=== PATIENT | female | born 1960 | race Caucasian/White ===

== ENCOUNTER 2021-12-30 07:18 | Outpatient (CLI) | payer BC, SELFPAY ==
--- NOTE | ~2021-12-30 | MM_ITS ---
EXAMINATION: MM screening ministerio BI w bess HISTORY: Screening TECHNIQUE: Craniocaudal and mediolateral oblique 3-D tomosynthesis images were obtained and synthetic 2-D images were generated. CAD analysis was submitted and interpreted. COMPARISON: Comparison to multiple prior studies sequentially, with oldest reviewed study dated 12/2015. BREAST PARENCHYMAL COMPOSITION: The breasts are heterogenously dense, which may obscure small masses FINDINGS: There is no evidence of suspicious mass, calcification, or architectural distortion to sugg est malignancy in either breast. There has been no suspicious interval change. IMPRESSION: 1. No mammographic evidence of malignancy. 2. Recommend routine screening mammography in one year. BI-RADS Category 1: Negative Reviewed, dictated and finalized at location A. ATG DEVELOPER
== END 2021-12-30 07:19 | disposition home or self-care (01) ==
LOC: ANHIMG 07:21
PROVIDERS: PCP Family Medicine; Visit Provider Obstetrics & Gynecology
DX: Z12.31 Encounter for screening mammogram for malignant neoplasm of breast (principal)
CPT/HCPCS: 77063; 77067

== ENCOUNTER 2024-11-07 10:13 | Emergency (ER) | payer BC, SELFPAY ==
--- NOTE | ~2024-11-07 | XR_ITS ---
EXAMINATION: XR wrist RT min 3V, XR hand RT min 3V DATE: 11/07/2024 11:35 INDICATION: Right hand and wrist pain post fall TECHNIQUE: 1. Posteroanterior, oblique, and lateral views of the right wrist were obtained. 2. Dorsal palmar, oblique and lateral views of the right hand were obtained. COMPARISON: None. FINDINGS: Dorsally impacted transverse metaphyseal fracture of the distal right radius with 40 degree dorsal an gulation. There is 4 mm radial displacement of an ulnar styloid avulsion fracture. Normal alignment n o fractures within the right hand. 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 IMPRESSION: 1. 40 degrees dorsal angulation of a transverse extra articular fracture of the distal right radial m etaphyseal region. 2. 4 mm radial displacement of an ulnar styloid avulsion fracture. Reviewed, dictated and finalized at location B. EL POWERPLANT SUPERVISOR IMPRESSION: 1. 40 degrees dorsal angulation of a transverse extra articular fracture of the distal right radial metaphyseal region. 2. 4 mm radial displacement of an ulnar styloid avulsion fracture.
--- NOTE | ~2024-11-07 | XR_ITS ---
XR elbow RT min 3V Ordering provider: Sharif Arnold PA-C History: . PAIN AFTER FALL, LIMITED ROM . Comparison: None. FINDINGS: BONES: No acute fracture or dislocation. JOINT SPACES: Normal. SOFT TISSUES: Possible effusion seen anteriorly. No definite joint effusion. IMPRESSION: No acute osseous abnormality of the right elbow. Reviewed, dictated and finalized at location A. N END MAN
[2024-11-07 10:15] VITALS: BP 108/65; PULSE 63; RESP 16; TEMP 36.4; O2SAT 100
--- NOTE | 2024-11-07 11:31 | ED.FALL ---
HPI - Fall General Chief Complaint: Fall Stated Complaint: fell on ice hurt R wrist pain up arm to elbow Time Seen by Provider: 11/07/24 11:02 Source: patient Mode of arrival: ambulatory Limitations: no limitations History of Present Illness HPI Narrative: This is a 64 year old female who presents to the ED for chief complaint of right wrist, right elbow pain after a fall that occurred today. Patient reports that she slipped and fell on the ice and fell directly onto her right side. Denies any further injury including head injury or LOC. denies numbness or weakness. Related Data Home Medications ?Medication ?Instructions ?Recorded ?Confirmed ?Last Taken ?Type travoprost 0.004 % eye drops 1 drp EACH EYE QPM 11/21/21 11/21/21 Unknown History (Travatan Z) Allergies Allergy/AdvReac Type Severity Reaction Status Date / Time No Known Allergies Allergy Verified 11/07/24 10:14 Review of Systems Review of Systems: All systems as dictated in [facility] Past Medical History Medical History (Updated 11/07/24 @ 11:47 by Sharif Arnold PA-C) Migraine Allergies Family History Family History (Updated 11/21/21 @ 08:34 by Ania Tristan MA) Mother Lung cancer Sibling Melanoma Grandparent Lymphoma Hypertension Social History Social History (Updated 11/21/21 @ 08:35 by Ania Tristan MA) Smoking status: Never smoker Alcohol intake: current Substance use: never Exam Narrative: GENERAL: Well-appearing, well-nourished, and in no acute distress. MSK: RUE: Tenderness throughout the right wrist with no deformity. No bruising or crepitus. Anatomical snuffbox tenderness present. Neurovascular intact distally. LUE: benign SKIN: Warm, dry, no rash. NEURO: Alert and oriented x4. No focal deficits. PSYCH: Normal mood and affect. Course Vital Signs Vital signs: Vital Signs Temperature 97.6 F 11/07/24 10:15 Pulse Rate 63 11/07/24 10:15 Respiratory Rate 16 11/07/24 10:15 Blood Pressure 108/65 11/07/24 10:15 Pulse Oximetry 100 11/07/24 10:15 Oxygen Delivery Room Air 11/07/24 10:15 Temperature 97.4 F L 11/07/24 13:17 Pulse Rate 74 11/07/24 13:17 Respiratory Rate 17 11/07/24 13:17 Blood Pressure 96/60 L 11/07/24 13:17 Pulse Oximetry 97 11/07/24 13:17 Oxygen Delivery Room Air 11/07/24 10:15 MDM - Fall MDM Narrative Medical decision making narrative: This is a 64-year-old female who presents to the ED for chief complaint of right wrist and elbow pain after a fall on ice today. Vitals are normal. Exam remarkable for the above. No gross deformities or neurovascular compromise. Imaging today remarkable for distal radius and ulna fracture. Right wrist x-rays: IMPRESSION: 1. 40 degrees dorsal angulation of a transverse extra articular fracture of the distal right radial metaphyseal region. 2. 4 mm radial displacement of an ulnar styloid avulsion fracture. . Patient was given [place] for pain control here. She was placed in sugar-tong splint and given sling. Ortho referral given as well. Rx for short course for [place] for pain control at home Patient will be discharged in stable condition. Supportive measures discussed and return precautions given. Patient is understanding and agreeable with plan for discharge with PCP/ortho follow-up. Discharge Plan Discharge Clinical Impression: Closed fracture of right distal radius and ulna Patient Disposition: Home, Self-Care Condition: Stable Instructions: Antibiotic Form, Wrist Fracture in Adults (ED) Additional Instructions: Exam today does show fracture of the wrist. Please see Orthopedics for follow-up on this issue. Take [place] as prescribed for breakthrough pain. Control pain with Tylenol and ibuprofen regularly. Use the splint until otherwise directed by Orthopedics. If you have any new or worsening symptoms please return to the ER for further evaluation. Patient Language: [place] Citizen Prescriptions: New hydrocodone-acetaminophen 5-325 mg tablet 1 tablet PO Q8H PRN (Reason: pain) Qty: 12 0RF No Action travoprost [Travatan Z] 0.004 % drops 1 drp EACH EYE QPM Follow-up/Referrals: Orlin Gaytan MD [Physician] - Juaquin,Lyndon Zaldivar MD [Primary Care Provider] - Time of Disposition: 11:48
[2024-11-07] MEDS: HYDROcodone/acetaminophen (*CRX) 5-325 MG TABLET 1 TAB PO (12:11)
[2024-11-07 13:17] VITALS: BP 96/60; PULSE 74; RESP 17; TEMP 36.3; O2SAT 97
== END 2024-11-07 13:31 | disposition home or self-care (01) ==
PROVIDERS: Emergency Provider Physician Assistant; PCP Family Medicine
DX: S52.551A Other extraarticular fracture of lower end of right radius, initial encounter for closed fracture (principal); S52.611A Displaced fracture of right ulna styloid process, initial encounter for closed fracture; W00.0XXA Fall on same level due to ice and snow, initial encounter
CPT/HCPCS: 29125; 73080; 73110; 73130; 99284; A4565; A9270

== ENCOUNTER 2025-07-15 14:51 | Outpatient (CLI) | payer BC, SELFPAY ==
--- OUTSIDE RECORDS SUMMARY | 2025-07-13 11:39 | XMS_ITS | Encounter Summary ---
Author Organization [facility] Address [facility] [place] [address] Care Team Providers Care Server Programmer Name Role Phone Lyndon Reza MD Primary Care Provider [phone] Encounter Details Date Type Department Care Team (Latest Contact Info) Description 07/13/2025 11:39 AM CDT - 07/13/2025 11:59 PM T Hospital Encounter [facility] [address] [place] [address] Stefania Campbell NP [address] [phone] Discharge Disposition: Home or Self Care (Routine Discharge) Social History Tobacco Use Types Packs/Day Years Used Date Smoking Tobacco: Never Passive Smoke Exposure: Never Smokeless Tobacco: Never Alcohol Use Standard Drinks/Week Comments Yes 0 (1 standard drink = 0.6 oz pur e alcohol) rare [id number] Health Literacy Answer Date Recor ded How often do you need to hav e someone help you when you read instructions, pamphlets, or other written material from your doctor or pharmacy? Never 04/11/2025 [facility] Utilities Answer Date Recorded In the past 12 months has e electric, gas, oil, or water [facility] threatened to shut off services in your home? No 04/11/2025 Humiliation, Afraid, Rape, and Kick questionnair e Answer Date Recorded Within the last year, have y ou been afraid of your partner or ex-partner? No 04/11/2025 Within the last year, have y ou been humiliated or emotionally abused in other ways by your partner or ex-partner? No Within the last year, have y ou been kicked, hit, slapped, or otherwise physically hurt by your partner or ex-partner? No 04/11/2025 Within the last year, have y ou been raped or forced to have any kind of sexual activity by your partner or ex-partner? No 04/11/2025 Social Connection and Isolat ion Panel [NHANES] Answer Date Recorded In a typical week, how many times do you talk on the phone with family, friends, or neighbors? More than three times a week 04/11/2025 How often do you get togethe r with friends or relatives? More than three times a week 04/11/2025 How often do you attend chur or restorationism services? More than 4 times per year 04/11/2025 Do you belong to any clubs o r organizations such as voodoo groups, unions, fraternal or athletic groups, or school groups? Yes 04/11/2025 How often do you attend meet ings of the clubs or organizations you belong to? More than 4 times per year 04/11/2025 Are you , , di vorced, , never , or living with a partner? 04/11/2025 AUDIT-C Answer Date Recorded Q1: How often do you have a drink containing alc ohol? 2-4 times a month 04/11/2025 Q2: How many drinks containi ng alcohol do you have on a typical day when you are drinking? 1 or 2 04/11/2025 Q3: How often do you have si x or more drinks on one occasion? Never 04/11/2025 Overall Financial Resource Strain (CARDIA) Answe r Date Recorded How hard is it for you to pa y for the very basics like food, housing, medical care, and heating? Not very hard 04/11/2025 PHQ-2 Answer Date Recorded Patient Health Questionnaire-2 Score 0 04/21/2025 [facility] [place] [facility] - Occupational Stress Questionnaire Answer Date Recorded Do you feel stress - tense, restless, nervous, or anxious, or unable to sleep at night because your mind is troubled all the time - these days? Not at all 04/11/2025 Exercise Vital Sign Answer Date Recorde d On average, how many days pe r week do you engage in moderate to strenuous exercise (like a brisk walk)? 3 days 04/11/2025 On average, how many minutes do you engage in exercise at this level? 30 min 04/11/2025 Hunger Vital Sign Answer Date Recorded Within the past 12 months, y ou worried that your food would run out before you got the money to buy more. Never true 04/11/20 25 Within the past 12 months, t he food you bought just didn't last and you didn't have money to get more. Never true 04/11/2025 PRAPARE - Transportation Answer Date Re corded In the past 12 months, has l ack of transportation kept you from medical appointments or from getting medications? No 03/23 In the past 12 months, has l ack of transportation kept you from meetings, work, or from getting things needed for daily living? No 04/11/2025 Housing Stability Vital Sign Answer Mitchell e Recorded In the last 12 months, was t here a time when you were not able to pay the mortgage or rent on time? No 04/11/2025 In the past 12 months, how m any times have you moved where you were living? 0 04/11/2025 At any time in the past 12 m [facility], were you homeless or living in a senior care (including now)? No 04/11/2025 Comments No Sex and Gender Information Value Date Recorded Sex Assigned at Female 03/13/2025 9:48 PM CDT Legal Sex Female 8:22 PM CDT Gender Identity Not on file Sexual Orientation Not on file documented as of this encounter Functional Status * Are you deaf or do you have serious difficulty hearing Answer Date of Assessment Author Status Yes 04/11/2025 6:00 PM CDT Kathie Mares RN Active * Are you blind or do you have serious difficulty seeing, even when wearing glasses? Answer Date of Assessment Author Status No 04/11/2025 6:00 PM KAITLYNT Kathie Mares RN Active * Do you have serious difficulty walking or climbing stairs? Answer Date of Assessment Author Status No 04/11/2025 6:00 PM KAITLYNT Kathie Mares RN Active * Do you have difficulty dressing or bathing? Answer Date of Assessment Author Status No 04/11/2025 6:00 PM CDT Kathie Mares RN Active * Because of a physical, mental, or emotional condition, do you have difficulty doing errands alone such as visiting a doctor's office or shopping? Answer Date of Assessment Author Status No 04/11/2025 6:00 PM KAITLYNT Kathie Mares RN Active documented as of this encounter Mental Status * Because of a physical, mental, or emotional condition, do you have serious difficulty concentrating, remembering, or making decisions? Answer Entry Date Author Status Yes 04/11/2025 6:00 PM CDT Kathie Mares RN Active documented in this encounter Medications at Time of Discharge cephALEXin (KEFLEX) 500 MG capsuleIndications:D ysuria Take 1 capsule (500 mg total) by mouth 2 (two) times daily for 7 days. 14 capsule 07/13/2025 cetirizine (ZYRTEC) 10 MG tablet Take 1 tablet (10 mg total) by mouth as needed. diazePAM (VALIUM) 2 MG tablet Take 1 p.o. every 8 hours p.r.n. for vertigo 04/23/2025 fexofenadine (NIKOLAS) 60 MG tablet Take 0.5 tablets (30 mg total) by mouth daily as needed for Allergies. latanoprost (XALATAN) 0.005 % ophthalmic solution Place 1 drop into both eyes nightly at bedtime. 06/11/2023 ondansetron (ZOFRAN-ODT) 4 MG disintegrating tablet Take 1 tablet (4 mg total) by mouth. 04/23/2025 propranolol (INDERAL) 20 MG tablet Take 1 tablet (20 mg total) by mouth 2 (two) times daily. 04/28/2025 timolol 0.5 % ophthalmic gel-forming Place 1 drop into both eyes 2 (two) times a day. 04/26/2021 vitamin D3 (CHOLECALCIFEROL) 75 mcg Tab tablet Take 2 tablets (150 mcg total) by mouth daily. 30 tablet 04/12/2025 documented as of this encounter Plan of Treatment Upcoming Encounters Date Type Department Care Team (Late st Contact Info) Description 07/22/2025 7:20 AM CDT Office Visit [facility] [address] [place] [address] Lyndon Reza MD [address] [place] [address] documented as of this encounter Procedures Procedure Name Priority Date/Time Associated Diagnosis Comments URINE BACTERIA CULTURE Routine 07/13/2025 7:54 AM CDT Dysuria documented in this encounter Results * (ABNORMAL) URINE BACTERIA CULTURE (07/13/2025 7:54 AM CDT) SPEC DESCRIPTION URINE CLEAN CATCH 07/13/2025 11:40 AM CDT [facility] SPECIAL REQUESTS NO SPECIAL REQUEST 07/13/2025 11:40 AM CDT [facility] CULTURE RESULT >100,000 COL/ML ESCHERICHIA COLI (A) 07/15/2025 8:21 AM CDT [facility] URINE SPECIMEN OBTAINED BY CLEAN CATCH PROCEDURE / Unknown 07/13/2025 7:54 AM CDT 07/13/2025 11:43 AM CDT Narrative Organism Antibiotic Method Susceptibility Escherichia coli AMPICILLIN ESMER (VITEK) 8: Sensitive Escherichia coli AMPICILLIN/SULBACTAM ESMER (VITEK) <=2: Sensitive Escherichia coli CEFTRIAXONE ESMER (VITEK) <=1: Sensitive Escherichia coli CEFTAZIDIME ESMER (VITEK) <=1: Sensitive Escherichia coli CEFAZOLIN ESMER (VITEK) <=4: Sensitive Escherichia coli ESBL ESMER (VITEK) NEG: Sensitive Escherichia coli NITROFURANTOIN ESMER (VITEK) <=16: Sensitive Escherichia coli GENTAMICIN ESMER (VITEK) <=1: Sensitive Escherichia coli LEVOFLOXACIN ESMER (VITEK) <=0.12: Sensitive Escherichia coli PIPERACILLIN/TAZOBACTAM ESMER (VITEK) <=4: Sensitive Escherichia coli TRIMETH-SULFAMETH. ESMER (VITEK) <=20: Sensitive Stefania Campbell NP MICROBIOLOGY - GENERAL ORDERABLE S Final Result [facility] [address] [facility] [place] [address], [place] [phone] [facility] [address] [place] [address], [place] [phone] documented in this encounter Visit Diagnoses Diagnosis Dysuria documented in this encounter Additional Health Concerns Assessment Noted Time PHQ-9 Depression Total Score: 0 05/27/20 21 2:19 PM CDT documented as of this encounter Care Teams Server Programmer Relationship Specialty Start Date End Date Lyndon Reza MD PCP - General FAMILY PRACTICE 01/30/19 documented as of this encounter
--- NOTE | ~2025-07-15 | MM_ITS ---
EXAMINATION: MM screening ministerio BI w bess HISTORY: Screening TECHNIQUE: Craniocaudal and mediolateral oblique 3-D tomosynthesis images were obtained and synthetic 2-D images were generated. CAD analysis was submitted and interpreted. COMPARISON: 12/30/2021 BREAST PARENCHYMAL COMPOSITION: The breasts are extremely dense, which lowers the sensitivity of mammography. FINDINGS: There is no evidence of suspicious mass, calcification, or architectural distortion to suggest malignancy. There has been no suspicious interval change. IMPRESSION: 1. No mammographic evidence of malignancy. Recommend routine screening mammography in one year. BI-RADS Category 2: Benign finding(s) Reviewed, dictated and finalized at location Q. IMPRESSION: 1. No mammographic evidence of malignancy. Recommend routine screening mammogra phy in one year. BI-RADS Category 2: Benign finding(s)
--- OUTSIDE RECORDS SUMMARY | 2025-07-15 14:55 | XMS_ITS | Clinical Summary ---
Author Organization [facility] Address [address] [place] [address] Care Team Providers Care Plate Take Out Worker Name Role Phone Lyndon Reza MD Primary Care Provider [phone] Allergies No known active allergies Medications timolol 0.5 % ophthalmic gel-forming Place 1 drop into both eyes 2 (two) times a day. 1 Active latanoprost (XALATAN) 0.005 % ophthalmic solution Place 1 drop into both eyes nightly at bedtime. 3 Active fexofenadine (NIKOLAS) 60 MG tablet Take 0.5 tablets (30 mg total) by mouth daily as needed for Allergies. Active vitamin D3 (CHOLECALCIFEROL) 75 mcg Tab tablet Take 2 tablets (150 mcg total) by mouth daily. 30 tablet 5 Active cetirizine (ZYRTEC) 10 MG tablet Take 1 tablet (10 mg total) by mouth as needed. Active diazePAM (VALIUM) 2 MG tablet Take 1 p.o. every 8 hours p.r.n. for vertigo 5 Active ondansetron (ZOFRAN-ODT) 4 MG disintegrating tablet Take 1 tablet (4 mg total) by mouth. 5 Active propranolol (INDERAL) 20 MG tablet Take 1 tablet (20 mg total) by mouth 2 (two) times daily. 5 Active cephALEXin (KEFLEX) 500 MG capsuleIndications: Dysuria Take 1 capsule (500 mg total) by mouth 2 (two) times daily for 7 days. 14 capsule 5 07/20/20 25 Active Active Problems Problem Noted Date Diagnosed Date Vestibular dysfunction 04/21/2025 Assessment & Plan (04/21/2025 9:56 AM CDT): Was seen by ENT. He has a follow-up appointment next week. Schedule appointment with neurology. Vestibular dysfunction/possible M ni re's disease. So far patient doing well. No episode of dizziness/spinning sensation since seen at the ER. She was again advised to avoid sudden or drastic movement. Avoid bending over or reaching up. Encourage close fluids. Will continue to monitor. Consider PT. Consider HCTZ/diazepam/Antivert. Await input from ENT and neurology. Closed fracture of distal end of right radius Assessment & Plan (04/21/2025 9:56 AM CDT): Patient continues to do well. Completely healed. Will get bone density. States she will get it through her hazardous waste management specialist. Vitamin D deficiency 04/21/2025 Assessment & Plan (04/21/2025 9:57 AM CDT): She is currently on vitamin D3 150 mcg daily. Exercise and stay active. Fall risk precautions. Recommend patient to get her bone density done. Hypothermia 04/11/2025 Assessment & Plan (04/21/2025 9:56 AM CDT): Resolved. No episode of hypothermia. Monitor. Glaucoma 02/10/2019 Assessment & Plan (02/10/2019 4:54 PM CDT): Stable. Continue Travatan Z 1 drop each eye. Follow-up faithfully with drop forger helper. Resolved Problems Problem Noted Date Diagnosed Date Resolved Date Hematuria 12/11/2023 2024 Assessment & Plan (12/11/2023 2:33 PM CAUSTIC PREPARER): Hematuria is completely resolved. Patient is asymptomatic. Repeat UA: Normal. Acute UTI (urinary tract infection) 03/16/2022 2024 Assessment & Plan (12/11/2023 2:34 PM CAUSTIC PREPARER): Patient is clinically doing well. Dysuria/frequency resolved. Asymptomatic. Done with Bactrim DS for total of 10 days. Repeat UA: Back to normal. Encourage patient increase fluid/water intake. Assessment & Plan (03/20/2022 1:13 PM CDT): Dysuria and increased frequency. We will get UA reflex. Start patient empirically on Bactrim DS twice daily for 10 days. Increase fluids. Await culture and sensitivity. Encounter for screening colonoscopy 02/10/2019 2024 Assessment & Plan (02/10/2019 4:46 PM CDT): Patient is 58 years old and is long overdue for her screening colonoscopy. Will refer to Dr. Sousa. Rash 02/03/2019 2024 Assessment & Plan (02/10/2019 4:45 PM CDT): Rash is completely resolved. May discontinue Lotrisone cream and may take it only as needed. Assessment & Plan (02/03/2019 5:26 PM CDT): Dry erythematous at times with crusting rash rule out fungal in etiology. We will treat empirically with Lotrisone cream twice daily for at least 2 weeks then reevaluate. Keep skin always clean and dry. Headache 02/03/2019 2024 Assessment & Plan (02/03/2019 4:54 PM CDT): Possible migraine headache. Continue Motrin 400-600 mg 3 times a day with food as needed. We will continue to monitor. Acute pharyngitis 11/06/2014 2024 Assessment & Plan (10/20/2019 3:22 PM CAUSTIC PREPARER): Will get rapid strep.--Negative. More likely from postnasal drainage/drip. Start Ceftin/Zyrtec/Flonase as stated above. May take OTC lozenges as needed. Acute sinusitis 11/06/2014 2024 Assessment & Plan (08/30/2023 2:40 PM CAUSTIC PREPARER): Start patient on Ceftin 250 mg twice daily for 10 days, Zyrtec 10 mg nightly, Flonase nasal spray 2 sprays testosterone daily in the morning. May take Tylenol Extra Strength 2 every 8 hours as needed. Increase fluids and rest. Patient tested negative for strep, COVID and RSV. Call me if worse. Assessment & Plan (10/20/2019 3:22 PM CAUSTIC PREPARER): We will start patient on Ceftin 250 mg twice daily for 10 days, Zyrtec 10 mg nightly and Flonase nasal spray 2 sprays each nostril daily. May take Tylenol extra strength 1-2 every 8 hours as needed. Increase fluids/water. Encounter for preventive health examination 10/24/2013 07/02/2020 Assessment & Plan (06/05/2024 8:01 AM CDT): Essentially unremarkable physical examination. Routine blood test/labs: All unremarkable. Will update immunization and health maintenance. Encourage patient to choose healthy lifestyle to maximize her health. H/O mammogram 2024 Papanicolaou smear 0 Encounters Date Type Department Care Team Description 07/15/2025 Results Follow-Up [address] [address] Karin Brooks NP URINE BACTERIA CULTURE 07/13/2025 11:39 AM CDT - 07/13/2025 11:59 PM CDT Hospital Encounter [facility] [address] [place] [address] Stefania Campbell NP Discharge Disposition: Home or Self Care (Routine Discharge) 07/13/2025 7:20 AM CDT Office Visit [facility] [address] [place], [place] [address], [place] [address] Stefania Campbell NP UTI (Hematuria, Frequent urination/X 3-4 days) 07/13/2025 Travel 06/17/[address] [place] [address] Lyndon Reza MD Referral 05/29/2025 Scan [facility] Scanned, [facility] 04/28/2025 Scan [facility] Scanned, [facility] 04/21/2025 7:20 AM CDT Office Visit [address] [address] Lyndon Reza MD Follow Up (Routine-- ER O dizziness) 04/21/2025 Travel from Last 3 Months Immunizations Immunization Administration Dates Next Due Fluzone 6 Months+ Quad (0.5 mL Prefilled Syringe ) 07/26/2019 Influenza Adult (Generic) 08/20/2021,08/05/2019 Tdap (Generic) 07/10/2019 Family History Medical History Relation Comments Cancer Maternal Grandmother non hodgkin s lymphoma Cancer Mother breast Relation Status Comments Father Maternal Grandmother Mother Social History Tobacco Use Types Packs/Day Years Used Date Smoking Tobacco: Never Passive Smoke Exposure: Never Smokeless Tobacco: Never Tobacco Cessation:Counseling Given: No Alcohol Use Standard Drinks/Week Comments Yes 0 (1 standard drink = 0.6 oz pur e alcohol) rare B1300 Health Literacy Answer Date Recor ded How often do you need to hav e someone help you when you read instructions, pamphlets, or other written material from your doctor or pharmacy? Never 04/11/2025 [facility] Utilities Answer Date Recorded In the past 12 months has [facility] [employer] gas, oil, or water [employer] threatened to shut off services in your [...] 04/11/2025 How often do you attend chur ch or latter day services? More than 4 times per year 04/11/2025 Do you belong to any clubs o r organizations such as scientologist groups, unions, fraternal or athletic groups, or [...] Recorded Patient Health Questionnaire-2 Score 0 04/21/2025 [facility] - Occupational Stress Questionnaire Answer Date Recorded [...] any time in the past 12 m [facility], were you homeless or living in a penitentiary (including now)? No 04/11/2025 Comments No Sex and Gender Information Value Date Recorded Sex Assigned at Female 03/13/2025 9:48 PM CDT Legal Sex Female 8:22 PM CDT Gender Identity Not on file Sexual Orientation Not on file Last Filed Vital Signs Vital Sign Reading Time Taken Comments Blood Pressure 120/43 07/13/2025 7:06 AM CDT Pulse 72 07/13/2025 7:06 AM CDT Temperature 37.1 C (98.8 F) 07/13/2025 7:06 AM CDT Respiratory Rate 18 07/13/2025 7:06 AM CDT Oxygen Saturation 100% 07/13/2025 7:06 AM CDT Inhaled Oxygen Concentration - - Weight 54 kg (119 lb) 07/13/2025 7:06 AM CDT Height 165.1 cm (5' 5) 07/13/2025 7:06 AM CDT Body Mass Index 19.8 07/13/2025 7:06 AM CDT Plan of Treatment Upcoming Encounters Date Type Department Care Team (Late st Contact Info) Description 07/22/2025 7:20 AM CDT Office Visit [facility] [address] [place] [address] Lyndon Reza MD [address] [place] [address] Health Maintenance Due Date Last Done Comments Cervical Cancer Screening Pa p Smear (Age 30 to 64) Every 3 Years 1962 Hepatitis C 1980 Cervical Cancer Screening Pa p with HPV Testing (Age 30 to 64) Every 5 Years 1992 Cervical Cancer Screening wi th HPV 1992 Pneumococcal Vaccine: 50+ Years (1 of 1 - PCV) 2012 Zoster Vaccines (1 of 2) 2012 Mammogram Screening 12/31/2023 12/30/2021, 04/22/2019 Annual Physical 06/05/2025 06/05/2024 COVID-19 Vaccine (2024-2 6 season) 2025 10/13/2021, 02/11/2021, 01/14/2021 Colorectal Cancer Screening Colonoscopy (10 Years) 03/27/2029 03/27/2019 DTaP, Tdap and Td Vaccines ( 2 - Td or Tdap) 07/10/2029 07/10/2019 RSV Immunization or 60+ Years (1 - 1-dose 75+ series) 2037 PHQ-2 (Physician [place]) Completed 04/21/2025 Meningococcal B Vaccine Aged Out No l onger eligible based on patient's age to complete this topic Meningococcal Vaccine Aged Out No derik shilo eligible based on patient's age to complete this topic RSV Immunizations Under 20 Months Aged Out No longer eligible b ased on patient's age to complete this topic Procedures Procedure Name Priority Date/Time Associated Diagnosis Comments URINE BACTERIA CULTURE Routine 07/13/2025 7:54 AM CDT Dysuria URINALYSIS AUTO DIP Routine 07/13/2025 Dysuria MAMMOGRAM GENERIC (SCAN ORDER) 12/30/2021 COLONOSCOPY GENERIC (SCAN ORDER) Routine 03/27/2019 from Last 3 Months or Most Recently Relevant to Health Maintenance Results * (ABNORMAL) URINE BACTERIA CULTURE (07/13/2025 7:54 AM CDT) SPEC DESCRIPTION URINE CLEAN CATCH 07/13/2025 11:40 AM CDT [facility] SPECIAL REQUESTS NO SPECIAL REQUEST 07/13/2025 11:40 AM T [facility] CULTURE RESULT >100,000 COL/ML ESCHERICHIA COLI (A) 07/15/2025 8:21 AM CDT [facility] URINE SPECIMEN OBTAINED BY CLEAN CATCH [...] MICROBIOLOGY - GENERAL ORDERABLE S Final Result [facility] [address] [place] [address], [place] [phone] [facility] [address] [place] [address], [place] [phone] * (ABNORMAL) URINALYSIS AUTO DIP (07/13/2025) COLOR (U) LIZA(A) YELLOW [facility] (9401), [facility] TRANSPARENCY CLOUDY(A) CLEAR [facility] (9401), [facility] GLUCOSE (U) NEGATIVE NEGATIVE MG/DL [facility] (9401), [facility] BILIRUBIN (U) NEGATIVE NEGATIVE [facility] (9401), [facility] KETONES MG/DL (U) NEGATIVE NEGATIVE MG/DL [facility] (9401), [facility] SPECIFIC GRAVITY (U) 1.020 1.001 - 1.035 [facility] (9401), BRAND[facility] BLOOD (U) LARGE (3+ Hemolyzed, About 250 rbc/uL)(A) NEGATIVE [facility] (9401), BRANDY U PH 5.5 5.0 - 9.0 [facility] (9401), [facility] PROTEIN (U) 2+ (100)(A) NEGATIVE mg/dL [facility] (9401), [facility] UROBILINOGEN 0.2 0.2 - 1.0 EU/dL = mg/dL [facility] (9401), BARNDY NITRITES POSITIVE(A) NEGATIVE MG/DL [facility] (9401), BRANDY LEUKOCYTES (U) 3+ (LARGE)(A) NEGATIVE [facility] (9401), BRANDY URINE SPECIMEN OBTAINED BY CLEAN CATCH PROCEDURE / Unknown 07/13/2025 Stefania Campbell NP URINE ORDERABLES Final Result [facility] ([address]), [facility] [address] [place] [address], * MAMMOGRAM GENERIC (12/30/2021) Anatomical Region Laterality Modality Other 12/30/2021 Narrative 12/30/2021 Ordered by an unspecified provider. us Documents Scanned SCANNING Final Result * COLONOSCOPY (03/27/2019) us Documents Scanned SCANNING Final Result [facility] [address] [address] from Last 3 Months or Most Recently Relevant to Health Maintenance Insurance [facility] Advance Directives * Full Code (Latest Code Status on File) Date Activated Date Inactivated Comments 04/11/2025 5:37 PM 04/12/2025 1:03 PM Care Teams Plate Take Out Worker Relationship Specialty Start Date End Date Lyndon Reza MD PCP - General FAMILY PRACTICE 01/30/19
--- OUTSIDE RECORDS SUMMARY | 2025-07-15 14:55 | XMS_ITS | Encounter Summary ---
Author Organization [facility] Address [facility] [place] [address] Care Team Providers Care Hepatologist Name Role Phone Lyndon Reza MD Primary Care Provider [phone] Reason for Visit * Reason Onset Date Comments Results 07/15/2025 Encounter Details Date Type Department Care Team (Late st Contact Info) Description 07/15/2025 Results Follow-Up [facility] [address] [place] [address] Karin Brooks, MARIA LUISA [address] [place] [id number] URINE BACTERIA CULTURE Social History Tobacco Use Types Packs/Day Years [...] from your doctor or pharmacy? Never 04/11/2025 [facility] Utilities Answer Date Recorded In the past 12 months has e [employer], gas, oil, or water [employer] threatened to shut off services in your [...] How often do you attend chur or gnosticism services? More than 4 times per year 04/11/2025 Do you belong to any clubs o r organizations such as adventism groups, unions, fraternal or athletic groups, or [...] Recorded Patient Health Questionnaire-2 Score 0 04/21/2025 [facility] - Occupational Stress [...] any time in the past 12 m [facility], were you homeless or living in a skilled nursing (including now)? No 04/11/2025 Comments No Sex [...] PM KAITLYNT Kathie Mares RN Active * Because of a physical, mental, or emotional condition, do you have difficulty doing errands alone such as visiting a doctor's office or shopping? Answer Date of Assessment Author Status No 04/11/2025 6:00 PM CDT Kathie Mares RN Active documented as of this encounter Mental Status * Because of a physical, mental, or emotional condition, do you have serious difficulty concentrating, remembering, or making decisions? Answer Entry Date Author Status Yes 04/11/2025 6:00 PM CDT Kathie Mares RN Active documented in this encounter Progress Notes * Dianna Cross CMA - 07/15/2025 9:14 AM CDT Informed patient of results and providers recommendations. No questions or concerns at this time. Dianna Cross CMA 07/15/2025 * Dianna Cross CMA - 07/15/2025 9:09 AM CDT Attempted to contact patient regarding results and recommendations. No answer, lvm with callback number. Dianna Cross CMA 07/15/2025 documented in this encounter Plan of Treatment Upcoming Encounters Date Type Department Care Team (Late st Contact Info) Description 07/22/2025 7:20 AM CDT Office Visit [facility] [address] [place] [address] Lyndon Reza MD [address] [place] [id number] documented as of this encounter Visit Diagnoses Not on filedocumented in this encounter Additional Health Concerns Assessment Noted Time PHQ-9 Depression Total Score: 0 05/27/20 21 2:19 PM CDT documented as of this encounter Care Teams Hepatologist Relationship Specialty Start Date End Date Lyndon Reza MD PCP - General FAMILY PRACTICE 01/30/19 documented as of this encounter
--- OUTSIDE RECORDS SUMMARY | 2025-07-15 14:55 | XMS_ITS | Clinical Summary ---
Author Organization [facility] [address] Address [facility] [place] [address] Care Team Providers Care Crutching Contractor Name Role Phone Lyndon Reza MD Primary Care Provider [phone] Alvaro Linares MD Unavailable Allergies No known active allergies Medications latanoprost (XALATAN) 0.005 % ophthalmic solutionIndication s:open angle glaucoma Administer 1 drop into both eyes nightly 3 Active timolol (TIMOPTIC) 0.5 % ophthalmic solutionIndication s:open angle glaucoma Administer 1 drop into both eyes 2 (two) times a day 3 Active cetirizine (ZyrTEC) 10 mg tablet Take 1 tablet (10 mg total) by mouth as needed for allergies Active brimonidine (ALPHAGAN P) 0.1 % dropsIndications:o pen angle glaucoma Administer 1 drop into both eyes 2 (two) times a day Active ibuprofen 200 mg tab/cap Take 1 tablet/capsule (200 mg total) by mouth every 6 (six) hours as needed for pain Active acetaminophen (TYLENOL) 500 mg tablet Take 1 tablet (500 mg total) by mouth every 6 (six) hours as needed for pain Active cholecalciferol (VITAMIN D-3) 3,000 unit tablet Take 150 mcg by mouth daily 5 Active ondansetron ODT (ZOFRAN-ODT) 4 mg disintegrating tablet Take 1 tablet (4 mg total) by mouth every 8 (eight) hours as needed for nausea or vomiting 20 tablet 1 5 Active diazePAM (Valium) 2 mg tablet Take 1 p.o. every 8 hours p.r.n. for vertigo 20 tablet 5 Active propranoloL (INDERAL) 20 mg tablet Take 1 tablet (20 mg total) by mouth 2 (two) times a day 120 tablet 1 5 Active Active Problems Problem Noted Date Diagnosed Date Vertigo 03/19/2025 Assessment & Plan (04/29/2025 3:14 PM CDT): The patient is presenting for follow up after two episodes of acute onset vertigo. These episodes were described as acute onset room spinning with associated nausea and vomiting. She has had two episodes far both of which have been preceded by a sensation of left ear fullness. The first occurred on the evening of March 13, 2025 and led to her hospitalization in [facility]. She received TNK but a brain MRI showed no acute intracranial abnormalities despite ongoing symptoms making stroke less likely. She also underwent a CTA of her head and neck which showed no significant stenosis or occlusion. His CT of her abdomen and pelvis demonstrated nonspecific colitis. Her second episode occurred following discharge from the hospital when she was out to the due with the family. This led to a second hospitalization that also showed no definitive cause for her symptoms. During this hospitalization she was found to be hypothermic but no infectious source was identified. She subsequently followed up with the ENT who reported that the likelihood of Meniere's disease is low given her lack of ongoing hearing loss. The patient reports no ongoing neurological deficits outside of these two episodes of vertigo. She has no risk factors for stroke. We discussed her prior episodes of vertigo. Comprehensive workup thus far has shown no underlying structural abnormalities. Given that the patient has undergone a brain MRI when symptomatic without signs of an acute intracranial abnormalities make stroke or TIA less likely. She has a history of mild headaches but these are not overly bothersome. It is conceivable the patient is experiencing vestibular migraines although given her only symptom is vertigo without any migrainous features such as head pain, photophobia, or phonophobia. The patient has history of left ear fullness preceding both episodes raises the suspicion for inner ear dysfunction contributing the patient's symptoms. Her lack of hearing loss is atypical for disorder like Meniere's. I recommended empiric treatment for vestibular migraine and continue to monitor for symptom recurrence. I will start the patient on propranolol 20 mg twice daily. I encouraged her to obtain a blood pressure cuff and monitor to ensure the propranolol does not decrease her blood pressure. I instructed her to reach out in a month and update me on her blood pressure numbers. I will see her back in follow up instructed her to reach out if any questions or concerns arise before next visit. Closed fracture of right distal radius 5 Glaucoma 02/10/2019 Resolved Problems Problem Noted Date Diagnosed Date Resolved Date Stroke-like symptom 03/14/2025 03/19/20 25 Benign paroxysmal positional vertigo due to bilateral vestibular disorder 03/14/2025 03/19/2025 Encounters Date Type Department Care Team Description 07/03/2025 Telephone [facility] ENT [address] [place] [id number] Christine Landeros, IT INFRASTRUCTURE ENGINEER 06/23/2025 8:00 AM CDT Procedure visit [facility] [facility] [address] [place] [address] [place] [address] Karen Cooper Au.D. Dizziness and giddiness (Primary Dx) 04/28/2025 12:00 PM CDT Office Visit [facility] [address] [place] [address] Alvaro Linares MD Vertigo (Primary Dx) 04/23/2025 9:00 AM CDT Office Visit [facility] [address] [place] [address] Christine Landeros, MARIA LUISA Dizziness and giddiness (Primary Dx); Sensorineural hearing loss (SNHL) of both ears; Impaired auditory discrimination, bilateral 04/23/2025 8:40 AM CDT Procedure visit [facility] [address] [place] [address] Sensorineural hearing loss (SNHL) of both ears (Primary Dx) 04/23/2025 Orders Only [facility] [address] [place] [address] Celia Escobar CMA 04/23/2025 Orders Only [facility] [address] [place] [address] Celia Escobar CMA Dizziness and giddiness (Primary Dx) 04/14/2025 Orders Only [facility] [address] [place] [address] Alvaro Linares MD Vertigo (Primary Dx) 04/14/2025 Telephone [facility] [address] [place] [address] Nohemy Morales RN from Last 3 Months Surgical History Surgery Date Site/Laterality Comments COLONOSCOPY 10/22/2019 - 10/21/2020 x2 WRIST FRACTURE SURGERY 11/22/2024 - 12/19/2024 Left Medical History Medical History Date Comments Glaucoma Migraines Dizziness february 2025 HL (hearing loss) Sinusitis Family History Medical History Relation Name Comments No Known Problems Daughter 1 No Known Problems Daughter 2 Lymphoma Maternal Grandmother Breast cancer Mother Cancer Mother Relation Name Status Comments Daughter 1 Alive Daughter 2 Alive Maternal Grandmother Mother Social History Tobacco Use Types Packs/Day Years Used Date Smoking Tobacco: Never Smokeless Tobacco: Never Tobacco Cessation:Counseling Given: Not Answered AUDIT-C Answer Date Recorded Q1: How often do you have a drink containing alc ohol? Monthly or less 11/11/2024 Q2: How many drinks containi ng alcohol do you have on a typical day when you are drinking? 1 or 2 11/11/2024 Q3: How often do you have si x or more drinks on one occasion? Never 11/11/2024 PHQ-2 Answer Date Recorded PHQ-2 Total Score (If total score is 3 or more points, staff should administer the PHQ-9) 0 03/14/2025 PHQ-9 Answer Date Recorded PHQ-9 Total Score 0 03/14/2025 Personal Safety Answer Date Recorded Have you ever been in or are you currently in a harmful physical or emotional relationship or is someone making you feel afraid or unsafe? Denies 03/14/2025 Comments No Sex and Gender Information Value Date Recorded Sex Assigned at Not on file Legal Sex Female 8:44 AM CDT Gender Identity Female 08/25/2023 8:45 AM CDT Sexual Orientation Not on file Obstetrics History Last Filed Vital Signs Vital Sign Reading Time Taken Comments Blood Pressure 112/73 04/28/2025 11:59 AM CDT Pulse 73 04/28/2025 11:59 AM CDT Temperature 36.6 C (97.8 F) 04/28/2025 11:59 AM CDT Respiratory Rate 16 03/15/2025 8:15 AM CDT Oxygen Saturation 98% 04/28/2025 11:59 AM CDT Inhaled Oxygen Concentration - - Weight 54.4 kg (120 lb) 04/28/2025 11:59 AM CDT Height 167.6 cm (5' 6) 04/28/2025 11:59 AM CDT Body Mass Index 19.37 04/28/2025 11:59 AM CDT Plan of Treatment Health Maintenance Due Date Last Done Comments Breast Cancer Screening-Mammogram 1962 Cervical Cancer Screening 1962 Colon Cancer Screening-Colonoscopy 1962 Hepatitis C Screening 1962 Hepatitis B Screening 1980 Regular Well Visit/Exam 18-64 1980 Zoster Vaccine (1 of 2) 2012 Covid-19 Vaccine ( season) 2025 08/12/2022, 10/13/2021, 02/11/2021, Additional history exists Influenza Vaccine (#1) 2025 , 08/02/2022, 08/20/2021, Additional history exists Depression Screening 03/14/2026 03/14/2025, 03/14/20 25 DTaP/Tdap/Td Vaccine (3 - Td or Tdap) 07/10/2029 07/10/2019, 06/30/2019 Pneumococcal vaccine <65 Aged Out No longer eligible based on patient's age to complete this topic Medical Devices Implanted Type Area Infrastructure Engineer Device Identifier Shelf Expiration Date Model / Serial / Lot Smart Cube Inc Aptus 2.5mm 14mm Lock Radius Screw Bone Bonita A-5750.14/1 - [id number] Implanted:Qty: 2 on 11/14/2024 by Vignesh Henderson MD at [facility] Right: Radius [employer] A-5750.14/1 / / [employer] Aptus Trilock 2.5mm 12mm Hexadrive 7 Adaptive Wrist Radius A-5750.12/ - [id number] Implanted:Qty: 1 on 11/14/2024 by Vignesh Henderson MD at [facility] Right: Radius [employer] A-5750.12/1 / / [employer] Aptus Trilock 2.5mm 12mm Hexadrive 7 Adaptive Wrist Radius A-5750.12 - [id number] Implanted:Qty: 1 on 11/14/2024 by Vignesh Henderson MD at [facility] Right: Radius [employer] A-5750.12/1 / / [employer] Aptus Trilock 2.5mm 18mm Hexadrive 7 Adaptive Wrist Radius A-5750.18/1 - [id number] Implanted:Qty: 1 on 11/14/2024 by Vignesh Henderson MD at [facility] Right: Radius [employer] A-5750.18/1 / / [employer] Aptus Trilock [id number] 10 Hole Right Distal Volar Radius A-4750.32 - [id number] Implanted:Qty: 1 on 11/14/2024 by Vignesh Henderson MD at [facility] Right: Radius [employer] A-4750.32 / / [employer] Aptus 2.5mm 15mm Adaptive Hexadrive 7 Wrist Radius Cortical Screw A-5700.15/1 - [id number] Implanted:Qty: 2 on 11/14/2024 by Vignesh Henderson MD at [facility] Right: Radius [employer] A-5700.15/1 / / [employer] 2.5mm 16mm Trilock Hexadrive Wrist Radius Screw Bone A-5750.16/1 - [id number] Implanted:Qty: 2 on 11/14/2024 by Vignesh Henderson MD at [facility] Right: Radius [employer] A-5750.16/ / / [employer] 2.5mm 14mm Cortical Screw Bone Bonita A-5700.14 - [id number] Implanted:Qty: 1 on 11/14/2024 by Vignesh Henderson MD at [facility] Right: Radius [employer] A-5700.04/11 / / Explanted Type Area Infrastructure Engineer Device Identifier Shelf Expiration Date Model / Serial / Lot [employer] Inc 2.5mm 14mm Cortical Screw Bone Bonita A-5700.14 - [id number] Explanted:Qty: 1 on 11/14/2024 at [facility] Right: Radius [employer] A-5700.04/11 / / Procedures Procedure Name Priority Date/Time Associated Diagnosis Comments AUDBASE RESULTS 04/23/2025 8:27 AM CDT from Last 3 Months Results * AudBase Results (04/23/2025 8:27 AM CDT) Provider Scanning AUDIOLOGY SERVICES ORDERABLES Final Result from Last 3 Months Insurance [facility] Advance Directives For more information, please contact: [phone] * Full Code (Latest Code Status on File) Date Activated Date Inactivated Comments 03/14/2025 4:51 AM 03/15/2025 3:16 PM Care Teams Crutching Contractor Relationship Specialty Start Date End Date Lyndon Reza MD [address] [place] [address] PCP - General Family Medicine 11/11/24 Alvaro Linares MD [address] [facility] [address] [place] [address] Consulting Physician Neurology 03/14/25
--- OUTSIDE RECORDS SUMMARY | 2025-07-15 14:55 | XMS_ITS | Clinical Summary ---
Author Organization [facility] Address [address] [place] [address] Care Team Providers Care Electronic Console Display Operator Name Role Phone Unavailable Primary Care Provider Unavailabl e Source Comments [facility] [employer],non-owned Affiliates and Associated Physician Practices is amultiple site organization consisting of ambulatory clinics and hospital sitesin [place], [place], [place] and [place]. This disclosure is being madepursuant to the Care Everywhere program and may not contain all information available regarding this patient. 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 Gender Identity Not on file Sexual Orientation Not on file Plan of Treatment Health Maintenance Due Date Last Done Comments COLOGUARD (AGES 45-75) - COL ON CA SCREENING 1962 COLON MONITORING 1962 COLONOSCOPY - COLON CA SCREENING 1962 CT COLONOGRAPHY - COLON CA SCREENING 1962 Colorectal Cancer Screening 1962 FIT - COLON CA SCREENING 1962 FLEX SIG - COLON CA SCREENING 1962 LIPID TESTING 1962 MAMMOGRAM 1962 HIV SCREENING 1977 HEPATITIS C SCREENING 08/01/1980 DTAP/TDAP/TD VACCINES (1 - Tdap) 1981 PNEUMOCOCCAL VACCINE 50+ (1 of 1 - PCV) 2012 ZOSTER VACCINE (1 of 2) 2012 DEPRESSION SCREENING 10/22/2024 COVID-19 VACCINE (1 - 2023-2 5 season) 2025 INFLUENZA VACCINE (#1) 2025 Respiratory Syncytial Virus (RSV) Vaccine Pt: or over 60 yrs (1 - 1-dose 75+ series) 2037 HEPATITIS B VACCINE Aged Out No longe r eligible based on patient's age to complete this topic HIB VACCINE Aged Out No longer eligi ble based on patient's age to complete this topic HPV VACCINE Aged Out No longer eligi ble based on patient's age to complete this topic MENINGOCOCCAL (Group B) VACC INE SHARED DECISION-MAKING Aged Out No longer eligibl e based on patient's age to complete this topic MENINGOCOCCAL GROUPS A/C/Y/W VACCINE Aged Out No longer eligible b ased on patient's age to complete this topic Insurance [facility]
--- OUTSIDE RECORDS SUMMARY | 2025-07-15 14:55 | XMS_ITS | Encounter Summary ---
Author Organization [facility] Address [facility] [place] [address] Care Team Providers Care Case Picker Name Role Phone Lyndon Reza MD Primary Care Provider [phone] Encounter Details Date Type Department Care Team (Late st Contact Info) Description 12/20/2015 Abstract [facility] [address] [place] [address] , Generic ConversionMD Social History Tobacco Use Types Packs/Day Years Used Date Smoking Tobacco: Never Assessed Comments Unknown Sex and Gender Information Value Date Recorded Sex Assigned at Female 03/13/2025 9:48 PM CDT Legal Sex Female 8:22 PM CDT Gender Identity Not on file Sexual Orientation Not on file documented as of this encounter Plan of Treatment Upcoming Encounters Date Type Department Care Team (Late st Contact Info) Description 07/22/2025 7:20 AM CDT Office Visit [facility] [address] [place] [address] Lyndon Reza MD [address] [place] [address] documented as of this encounter Visit Diagnoses Not on filedocumented in this encounter Additional Health Concerns Infection Onset Date Last Indicated Resolved Time COVID-19 Rule Out 01/16/2024 01/16/2024 01/16/2024 11:45 AM CDT COVID-19 Rule Out 07/18/2024 07/18/2024 07/21/2024 11:43 AM CDT documented as of this encounter Care Teams Case Picker Relationship Specialty Start Date End Date Lyndon Reza MD PCP - General FAMILY PRACTICE 01/30/19 documented as of this encounter
--- OUTSIDE RECORDS SUMMARY | 2025-07-15 14:55 | XMS_ITS | Encounter Summary ---
Author Organization [facility] Address [address] [place] [address] Care Team Providers Care Wood Floor Refinisher Name Role Phone Lyndon Reza MD Primary Care Provider [phone] Encounter Details Date Type Department Care Team (Late st Contact Info) Description 03/28/2019 TIN WORKER ONLY [facility] Priority Care - [address] [place] [address] Scanned, Documents Social History Tobacco Use Types Packs/Day Years Used Date Smoking Tobacco: Never Smokeless Tobacco: Never Alcohol Use Standard Drinks/Week Comments Yes 0 (1 standard drink = 0.6 oz pur e alcohol) rare Comments Unknown Sex and Gender Information Value Date Recorded Sex Assigned at Female 03/13/2025 9:48 PM CDT Legal Sex Female 8:22 PM CDT Gender Identity Not on file Sexual Orientation Not on file documented as of this encounter OR Notes * Op Note - Zscanned, Documents - 03/28/2019 1:30 PM CDT ENEDELIA DON MD: Acct: [id number] Admit/Service Date: 03/28/19 Discharge Date: 03/28/19 : 1960 Pt Type: DEP SDC Sex: F Ord Site: [facility] OPERATIVE RECORD Date of Operation: 03/28/2019 Surgeon: Kimber Rodríguez M.D. Ass't: Chart Document Preoperative Diagnosis: Screening colonoscopy the first for this patient at age 58. Postoperative Diagnosis: Normal colon to the cecum. Additional note, this patient was scheduled for colonoscopy yesterday but colonoscopy could not be performed because of very poor prep. She required additional second day prep and now is for the colonoscopic examination today. Name of Operation: Colonoscopy to the cecum. PROCEDURE AND FINDINGS: Propofol anesthesia. The Olympus video colonoscope was passed and the entire colon examined up to the cecum with the following findings: 1. The prep was good but still not optimal at 9 on a total [place] score. Small residual flecks of stool were seen in many areas. It was however completely adequate for detailed examination. Video photographs of cecum and appendiceal orifice were obtained for documentation. 2. In spite of detailed exam no colon lesion of any kind was identified. 3. This patient has a small pelvis and the colon was quite redundant. A pediatric colonoscope would be an easier instrument to perform the colonoscopy if needed in the future. RECOMMENDATIONS: With negative screening colonoscopy, surveillance colonoscopy is recommended at ten years. Electronically Signed By: Kimber Rodríguez M.D. 04/11/2019 11:45 A Kimber Rodríguez M.D. RS:maxine P P cc: Brad Lang M.D. [id number] documented in this encounter Plan of Treatment Upcoming Encounters Date Type Department Care Team (Late st Contact Info) Description 07/22/2025 7:20 AM CDT Office Visit [facility] [address] [place] [address] Lyndon Reza MD [address] [place] [address] documented as of this encounter Visit Diagnoses Not on filedocumented in this encounter Additional Health Concerns Infection Onset Date Last Indicated Resolved Time COVID-19 Rule Out 01/16/2024 01/16/2024 01/16/2024 11:45 AM CDT COVID-19 Rule Out 07/18/2024 07/18/2024 07/21/2024 11:43 AM CDT documented as of this encounter Care Teams Wood Floor Refinisher Relationship Specialty Start Date End Date Lyndon Reza MD PCP - General FAMILY PRACTICE 01/30/19 documented as of this encounter
--- OUTSIDE RECORDS SUMMARY | 2025-07-15 14:55 | XMS_ITS | Encounter Summary ---
Author Organization [facility] Address [address] [place] [address] Care Team Providers Care Casting Repairer Name Role Phone Unavailable Primary Care Provider Unavailabl e Encounter Details Date Type Department Care Team (Late st Contact Info) Description 01/31/2021 Lab Requisition [facility] DermPath Lab [address] [place] [address] Joseph Barry MD [address] [address] Social History Tobacco Use Types Packs/Day Years Used Date Smoking Tobacco: Never Assessed Comments Unknown Sex and Gender Information Value Date Recorded Sex Assigned at Not on file 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 Gender Identity Not on file Sexual Orientation Not on file documented as of this encounter Plan of Treatment Not on file documented as of this encounter Procedures Procedure Name Priority Date/Time Associated Diagnosis Comments DERMATOPATHOLOGY Routine 01/28/2021 12:0 0 AM CDT documented in this encounter Results * DERMATOPATHOLOGY (01/28/2021 12:00 AM CDT) Case Report Dermatopathology Report Case: [id number] Authorizing Provider: Joseph Barry MD Collected: 01/28/2021 12:00 AM Ordering Location: [facility] DermPath Lab Received: 01/31/2021 07:54 AM Pathologist: Salo Ortega MD Specimen: Skin, right wrist 3:35 PM CDT DERMATOPATHOLOGY LABORATORY Final Diagnosis Specimen A. SKIN, right wrist: LENTIGINOUS MELANOCYTIC NEVUS, JUNCTIONAL TYPE, IRRITATED (JUNCTIONAL MELANOCYTIC NEVUS WITH ARCHITECTURAL DISORDER) (D22.61) 04/13/202 1 3:35 PM CDT DERMATOPATHOLOGY LABORATORY at 1535 CDT Clinical History Nevus vs atypia. Path#[id number] 3:35 PM CDT DERMATOPATHOLOGY LABORATORY Gross Description Specimen A: Received is one formalin filled container labeled with the patient's name and designated right wrist. The specimen consists of a shave biopsy measuring 5x4x1 mm. Jar 0. 1 3:35 PM CDT DERMATOPATHOLOGY LABORATORY Microscopic Description Specimen A. SKIN, right wrist: This is a junctional nevus. There is melanin pigment in the stratum corneum. There is architectural disorder characterized by a lentiginous proliferation of melanocytes between irregular nests of cells along the dermal-epidermal junction, highlighted by MART-1/Melan-A immunohistochemical staining. There is underlying fibroplasia of the papillary dermis. Original and deeper sections were reviewed. (Junctional Iftikhar's Nevus or Junctional Dysplastic Nevus) 3:35 PM T DERMATOPATHOLOGY LABORATORY Disclaimer An external and internal positive and negative controls are appropriate for the histochemical, immunohistochemical and immunofluorescence stain(s) in this case (if any), except where stated explicitly. The performance characteristics of the stain(s) cited in this report were developed and its performance characteristic determined by the Dermatopathology Laboratory at [facility], directed by Dr. Sindhu Ortega. These tests need not be, and therefore are not, approved by the [place] Food and Drug Administration. The tests are used for clinical purposes. Billing Codes Specimen Charges Stain Charges 83346 1 99012 1 1 3:35 PM CDT DERMATOPATHOLOGY LABORATORY Embedded Images 3:35 PM CDT DERMATOPATHOLOGY LABORATORY Pathology/Cytolog y TISSUE SPECIMEN FROM SKIN / Unknown 01/28/2021 01/31/2021 7:54 AM CDT us Joseph Barry MD LAB - PATHOLOGY/CYTOLOGY ORDER SHIRLEY Final Result DERMATOPATHOLOGY LABORATORY [facility] - Department of Dermatology [address], [address] [phone] documented in this encounter Visit Diagnoses Not on filedocumented in this encounter
== END 2025-07-15 14:52 | disposition home or self-care (01) ==
LOC: CHSIMG 14:52
PROVIDERS: PCP Family Medicine; Visit Provider Obstetrics & Gynecology
DX: Z12.31 Encounter for screening mammogram for malignant neoplasm of breast (principal)
CPT/HCPCS: 77063; 77067

== ENCOUNTER 2025-10-07 09:26 | Outpatient (CLI) | payer BC, SELFPAY ==
--- NOTE | ~2025-10-07 | DEXA_ITS ---
Bone Density Report Name: SERA DON Age: 65 Sex: Female Ethnicity: White Date of : 1960 Indication: postmenopausal; screening for osteoporosis; prior fracture; Referring Provider: DREW DORSEY Study: Bone densitometry was performed. Exam Date: October 07, 2025 Accession number: [id number] Bone Density: Region BMD T-score Z-score Classification AP Spine(L1-L4) 0.909 -1.3 0.4 Osteopenia Femoral Neck (Left) 0.547 -2.7 -1.3 Osteoporosis Total Hip (Left) 0.662 -2.3 -1.2 Osteopenia Femoral Neck (Right) 0.555 -2.6 -1.2 Osteoporosis Total Hip (Right) 0.649 -2.4 -1.3 Osteopenia Total Hip Mean 0.656 -2.4 -1.3 Osteopenia World Health Organization criteria for BMD impression classify patients as: Normal (T-score at or above -1.0), Osteopenia (T-score between -1.0 and -2.5), or Osteoporosis (T-score at or below -2.5). 10-year Fracture Risk: FRAX not reported because: Some T-score for Spine Total or Hip Total or Femoral Neck at or below -2.5 Clinical Information Provided by Patient: Has had a low trauma fracture Has used the following medications: Vitamin D Patient maximum height was 66.0 Menopause Age: 47 Does not regularly consume dairy products Drinks caffeinated beverages Onset of menses at age 16 Number of children 2 Impression: The patient has established osteoporosis, based on the Left Femoral Neck T-score and the existence of a prior fracture. The patient has risk factors, including: previous fracture. Discussion: HIGH RISK OF FRACTURE. BONE DENSITY IS UNDESIRABLY LOW AT ONE OR MORE SKELETAL SITES, CONSISTENT WITH POSTMENOPAUSAL OSTEOPOROSIS. This patient's lowest T-score, in a patient who has previously fractured, meets the World Health Organization's (WHO) criteria for severe osteoporosis. In untreated patients, the risk of osteoporotic fracture increases approximately two-fold for each 1.0 SD decrease in T-score. Low bone density is not the only risk factor for fracture; also consider factors such as patient's age, frailty or poor health, risk of falling, risk of injury, previous osteoporotic fracture, family history of osteoporosis, cigarette smoking, low body weight, etc. Not everyone with low bone mineral density has osteoporosis; osteomalacia and other metabolic bone disorders should also be considered. Patients who have osteoporosis should be evaluated for specific diseases and conditions (secondary causes) that may cause or contribute to bone loss. The [place] Association of Clinical Endocrinologists (AACE) and National Osteoporosis Foundation (NOF) recommend pharmacologic intervention for all postmenopausal women whose T-score is in this range. The patient should follow a healthful lifestyle (good nutrition with adequate calcium and vitamin D, and appropriate weight-bearing exercise). Follow-Up: Consider a repeat BMD and Vertebral Fracture Assessment (VFA) exam in 2 years or sooner if medically necessary, to reassess this patient's status. Reported by: TERRANCE on 10/07/2025 10:11:00 AM. Reviewed, dictated and finalized at location A.
--- OUTSIDE RECORDS SUMMARY | 2025-10-07 10:39 | XMS_ITS | Clinical Summary ---
Author Organization [facility] [address] Address [facility] [place] [address] Care Team Providers Care Production Helper Name Role Phone Lyndon Reza MD Primary Care Provider [phone] Alvaro Linares MD Unavailable Allergies No known [...] 2025 and led to her hospitalization in [facility]. She received TNK but a brain MRI [...] visit. Closed fracture of right distal radius Glaucoma 02/10/2019 Resolved Problems Problem Noted Date Diagnosed Date Resolved Date Stroke-like symptom 03/14/2025 03/19/20 25 Benign paroxysmal positional vertigo due to bilateral vestibular disorder 03/14/2025 03/19/2025 Surgical History Surgery Date Site/Laterality Comments COLONOSCOPY [...] AM CDT Sexual Orientation Not on file Last Filed [...] this topic Medical Devices Implanted Type Area Boat Canvas Installer Device Identifier Shelf Expiration Date Model / Serial / Lot [employer] Aptus 2.5mm 14mm Lock Radius Screw Bone Bonita A-5750.14/1 - [id number] Implanted:Qty: 2 on 11/14/2024 by Vignesh Henderson MD at [facility] Right: Radius [employer] A-5750.14/1 / / [employer] Aptus Trilock 2.5mm 12mm Hexadrive 7 Adaptive Wrist Radius A-5750.12/ - [id number] Implanted:Qty: 1 on 11/14/2024 by Vignesh Henderson MD at [facility] Right: Radius [employer] A-5750.12/ / / [employer] Aptus Trilock 2.5mm 12mm Hexadrive 7 Adaptive Wrist Radius A-5750.12 - [id number] Implanted:Qty: 1 on 11/14/2024 by Vignesh Henderson MD at [facility] Right: Radius [employer] A-5750.12/ / / [employer] Aptus Trilock 2.5mm 18mm Hexadrive 7 Adaptive Wrist Radius A-5750.18 - [id number] Implanted:Qty: 1 on 11/14/2024 by Vignesh Henderson MD at [facility] Right: Radius [employer] A-5750.18/1 / / [employer] Aptus Trilock [id number] 10 Hole Right Distal Volar Radius A-4750.32 - [id number] Implanted:Qty: 1 on 11/14/2024 by Vignesh Henderson MD at [facility] Right: Radius [employer] A-4750.32 / / [employer] Aptus 2.5mm 15mm Adaptive Hexadrive 7 Wrist Radius Cortical Screw A-5700.15/1 - [id number] Implanted:Qty: 2 on 11/14/2024 by Vignesh Henderson MD at [facility] Right: Radius [employer] A-5700.15/1 / / [employer] 2.5mm 16mm Trilock Hexadrive Wrist Radius Screw Bone A-5750.16/1 - [id number] Implanted:Qty: 2 on 11/14/2024 by Vignesh Henderson MD at [facility] Right: Radius [employer] A-5750.16/1 / / [employer] 2.5mm 14mm Cortical Screw Bone Bonita A-5700.14/1 - [id number] Implanted:Qty: 1 on 11/14/2024 by Vignesh Henderson MD at [facility] Right: Radius [employer] A-5700.04/11 / / Explanted Type Area Boat Canvas Installer Device Identifier Shelf Expiration Date Model / Serial / Lot [employer] 2.5mm 14mm Cortical Screw Bone Bonita A-5700.14 - [id number] Explanted:Qty: 1 on 11/14/2024 at [facility] Right: Radius [employer] A-5700.04/11 / / Insurance [employer] [place] [employer] [place] Advance Directives For more information, please contact: [phone] * Full Code (Latest Code Status on File) Date Activated Date Inactivated Comments 03/14/2025 4:51 AM 03/15/2025 3:16 PM Care Teams Production Helper Relationship Specialty Start Date End Date Lyndon Reza MD [address] [place] [address] PCP - General Family Medicine 11/11/24 Alvaro Linares MD [address] [facility] [address], [place] [address] Consulting Physician Neurology 03/14/25
--- OUTSIDE RECORDS SUMMARY | 2025-10-07 10:39 | XMS_ITS | Encounter Summary ---
Author Organization [facility] Address [facility] [place] [address] Care Team Providers Care Bow Maker Name Role Phone Lyndon Reza MD Primary Care Provider [phone] Encounter Details Date Type Department Care Team (Late st Contact Info) Description 12/20/2015 Abstract [facility] CONVERSION [address] [place] [address] , Generic Conversion, Social History Tobacco Use Types Packs/Day Years Used Date Smoking Tobacco: Never Assessed Comments Unknown Sex and Gender Information Value Date Recorded Sex Assigned at Female 03/13/2025 9:48 PM CDT Legal Sex Female 8:22 PM CDT Gender Identity Not on file Sexual Orientation Not on file documented as of this encounter Plan of Treatment Not on file documented as of this encounter Visit Diagnoses Not on filedocumented in this encounter Additional Health Concerns Infection Onset Date Last Indicated Resolved Time COVID-19 Rule Out 01/16/2024 01/16/2024 01/16/2024 11:45 AM CDT COVID-19 Rule Out 07/18/2024 07/18/2024 07/21/2024 11:43 AM CDT documented as of this encounter Care Teams Bow Maker Relationship Specialty Start Date End Date Lyndon Reza MD PCP - General FAMILY PRACTICE 01/30/19 documented as of this encounter
--- OUTSIDE RECORDS SUMMARY | 2025-10-07 10:39 | XMS_ITS | Encounter Summary ---
Author Organization [facility] Address [address] [facility] [place] [address] Care Team Providers Care Twisting Frame Operator Name Role Phone Unavailable Primary Care Provider Unavailabl e Encounter Details Date Type Department Care Team (Late st Contact Info) Description 01/31/[address] [facility] Derm[facility] Lab [address] [facility] [facility] [place] [address] Joseph Barry MD [address] [place] [address] Social History Tobacco Use Types Packs/Day Years Used Date Smoking Tobacco: Never Assessed Comments Unknown Sex and Gender Information Value Date Recorded Sex Assigned at Not on file Legal Sex Female 5:50 PM IMAGING TECHNOLOGIST Gender Identity Not on file Sexual Orientation Not on file documented as of this encounter Plan of Treatment Not on file documented as of this encounter Procedures Procedure Name Priority Date/Time Associated Diagnosis Comments DERMATOPATHOLOGY Routine 01/28/2021 12:0 0 AM CDT documented in this encounter Results * DERMATOPATHOLOGY (01/28/2021 12:00 AM CDT) Case Report Dermatopathology Report Case: [id number] Authorizing Provider: Joseph Barry MD Collected: 01/28/2021 12:00 AM Ordering Location: [facility] D[facility] Lab Received: 01/31/2021 07:54 AM Pathologist: Salo Ortega MD Specimen: Skin, right wrist 3:35 PM CDT DERMATOPATHOLOGY LABORATORY Final Diagnosis Specimen A. SKIN, right wrist: LENTIGINOUS MELANOCYTIC NEVUS, JUNCTIONAL TYPE, IRRITATED (JUNCTIONAL MELANOCYTIC NEVUS WITH ARCHITECTURAL DISORDER) (D22.61) 04/13/202 1 3:35 PM CDT DERMATOPATHOLOGY LABORATORY at 1535 CDT Clinical History Nevus vs atypia. Path#[id number] 3:35 PM CDT DERMATOPATHOLOGY LABORATORY Gross Description [...] characteristic determined by the Dermatopathology Laboratory at [facility], directed by Dr. Sindhu Ortega. These tests need not be, and therefore are not, approved by the [place] Food and Drug Administration. The tests are used for clinical purposes. Billing Codes Specimen Charges Stain Charges 13986 1 95093 1 1 3:35 PM CDT DERMATOPATHOLOGY LABORATORY Embedded Images 3:35 PM CDT DERMATOPATHOLOGY LABORATORY Pathology/Cytolog y TISSUE SPECIMEN FROM SKIN / Unknown 01/28/2021 01/31/2021 7:54 AM CDT us Joseph Barry MD LAB - PATHOLOGY/CYTOLOGY ORDER SHIRLEY Final Result DERMATOPATHOLOGY LABORATORY [facility] - Department of Dermatology [address], [address] [phone] documented in this encounter Visit Diagnoses Not on filedocumented in this encounter
--- OUTSIDE RECORDS SUMMARY | 2025-10-07 10:39 | XMS_ITS | Clinical Summary ---
Author Organization [facility] Address [address] [place] [address] Care Team Providers Care Jacket Preparer Name Role Phone Lyndon Reza MD Primary Care Provider [phone] Allergies No known active allergies Medications timolol [...] mouth 2 (two) times daily. 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 Recommended prophylaxis propranolol but patient declined for now. States she has been doing well. Will continue to monitor. Vestibular dysfunction 04/21/2025 Assessment & Plan (04/21/2025 [...] end of right radius Assessment & Plan (08/24/2025 1:26 PM IN STORE REPRESENTATIVE): Patient continues to do well. Completely healed. Advised to get her bone density done. States she gets it through her food safety field specialist. Assessment & Plan (04/21/2025 9:56 AM CDT): Patient continues to do well. Completely healed. Will get bone density. States she will get it through her food safety field specialist. Vitamin D deficiency 04/21/2025 Assessment & Plan (08/24/2025 1:26 PM IN STORE REPRESENTATIVE): Vitamin D level 16== was started on vitamin D3 150 mcg daily. Continue same dose. Exercise and stay active. Fall risk precautions. Recommend bone density. Assessment & Plan (04/21/2025 9:57 AM CDT): [...] 1 drop each eye. Follow-up faithfully with web production designer. Resolved Problems Problem Noted Date Diagnosed Date Resolved Date Hematuria 12/11/2023 2024 Assessment & Plan (12/11/2023 2:33 PM IN STORE REPRESENTATIVE): Hematuria is completely resolved. Patient is asymptomatic. Repeat UA: Normal. Acute UTI (urinary tract infection) 03/16/2022 2024 Assessment & Plan (12/11/2023 2:34 PM IN STORE REPRESENTATIVE): Patient is clinically doing well. Dysuria/frequency resolved. [...] 2024 Assessment & Plan (10/20/2019 3:22 PM IN STORE REPRESENTATIVE): Will get rapid strep.--Negative. More likely from postnasal drainage/drip. Start Ceftin/Zyrtec/Flonase as stated above. May take OTC lozenges as needed. Acute sinusitis 11/06/2014 2024 Assessment & Plan (08/30/2023 2:40 PM IN STORE REPRESENTATIVE): Start patient on Ceftin 250 mg twice daily for 10 days, Zyrtec 10 mg nightly, Flonase nasal spray 2 sprays testosterone daily in the morning. May take Tylenol Extra Strength 2 every 8 hours as needed. Increase fluids and rest. Patient tested negative for strep, COVID and RSV. Call me if worse. Assessment & Plan (10/20/2019 3:22 PM IN STORE REPRESENTATIVE): We will start patient on Ceftin 250 [...] Encounters Date Type Department Care Team Description 08/24/2025 12:40 PM IN STORE REPRESENTATIVE Office Visit [facility] [address] [place] [address] Lyndon Reza MD Follow Up (3mo chronic) 08/24/2025 Travel 07/15/2025 Results Follow-Up [facility] [address] [address] Karin Brooks NP URINE BACTERIA CULTURE 07/13/2025 11:39 AM CDT - 07/13/2025 11:59 PM CDT Hospital Encounter [facility] Laboratory [address] [place] [address] Stefania Campbell NP Discharge Disposition: Home or Self Care (Routine Discharge) 07/13/2025 7:20 AM CDT Office Visit [facility] [address] [place] [phone] Stefania Campbell NP UTI (Hematuria, Frequent urination/X 3-4 days) 07/13/2025 Travel from Last 3 Months Immunizations Immunization [...] from your doctor or pharmacy? Never 04/11/2025 [facility] Utilities Answer Date Recorded In the past 12 months has e [employer], gas, oil, or water [employer] threatened to shut off services in your [...] or ex-partner? No 04/11/2025 Social Connection and Isolation Panel Answer Date Recorded In a typical week, how many times do you talk on the phone with family, friends, or neighbors? More than three times a week 04/11/2025 How often do you get togethe r with friends or relatives? More than three times a week 04/11/2025 How often do you attend chur ch or islam services? More than 4 times per year 04/11/2025 Do you belong to any clubs o r organizations such as anabaptism groups, unions, fraternal or athletic groups, or [...] Recorded Patient Health Questionnaire-2 Score 0 04/21/2025 [facility] - Occupational Stress [...] any time in the past 12 m [facility], were you homeless or living in a nursing home (including now)? No 04/11/2025 Comments No Sex and Gender Information Value Date Recorded Sex Assigned at Female 03/13/2025 9:48 PM CDT Legal Sex Female 8:22 PM CDT Gender Identity Not on file Sexual Orientation Not on file Last Filed Vital Signs Vital Sign Reading Time Taken Comments Blood Pressure 128/66 08/24/2025 12:39 PM IN STORE REPRESENTATIVE Pulse 85 08/24/2025 12:39 PM IN STORE REPRESENTATIVE Temperature 36.3 C (97.4 F) 08/24/2025 12:39 PM IN STORE REPRESENTATIVE Respiratory Rate 18 08/24/2025 12:39 PM IN STORE REPRESENTATIVE Oxygen Saturation 99% 08/24/2025 12:39 PM IN STORE REPRESENTATIVE Inhaled Oxygen Concentration - - Weight 54 kg (119 lb) 08/24/2025 12:39 PM IN STORE REPRESENTATIVE Height 165.1 cm (5' 5) 08/24/2025 12:39 PM IN STORE REPRESENTATIVE Body Mass Index 19.8 08/24/2025 12:39 PM IN STORE REPRESENTATIVE Plan of Treatment Health Maintenance Due Date Last Done Comments Cervical Cancer Screening Pa p Smear (Age 30 to 64) Every 3 Years 1962 Hepatitis C 1980 Cervical Cancer Screening Pa p with HPV Testing (Age 30 to 64) Every 5 Years 1992 Cervical Cancer Screening [facility] HPV 1992 Pneumococcal Vaccine: 50+ Years (1 of 1 - PCV) 2012 Zoster Vaccines (1 of 2) 2012 Mammogram Screening 12/31/2023 12/30/2021, 04/22/2019 Annual Physical 06/05/2025 06/05/2024 COVID-19 Vaccine (4 - 2024-2 6 season) 2025 10/13/2021, 02/11/2021, 01/14/2021 Influenza Adult (#1) 2025 08/20/2021, 08/05/2019, 07/26/2019 Colorectal Cancer Screening Colonoscopy (10 Years) 03/27/2029 03/27/2019 DTaP, Tdap and Td Vaccines ( 2 - Td or Tdap) 07/10/2029 07/10/2019 RSV Immunization or 60+ Years (1 - 1-dose 75+ series) 2037 PHQ-2 (Physician [place]) Completed 04/21/2025 Hepatitis A Vaccines Aged Out No long er eligible based on patient's age to complete this topic Meningococcal B Vaccine Aged Out No l onger eligible based on patient's age to complete this topic Meningococcal Vaccine Aged Out No derik shilo eligible based on patient's age to complete this topic RSV Immunizations Under 20 Months Aged Out No longer eligible b ased on patient's age to complete this topic Procedures Procedure Name Priority Date/Time Associated Diagnosis Comments HC CULTURE URINE W/COLONY CT Routine 07/13/2025 7:54 AM CDT Dysuria URINALYSIS, AUTO, W/O SCOPE Routine 07/13/2025 Dysuria MAMMOGRAM GENERIC (SCAN ORDER) 12/30/2021 COLONOSCOPY GENERIC (SCAN ORDER) Routine 03/27/2019 from Last 3 Months or Most Recently Relevant to Health Maintenance Results * (ABNORMAL) URINE BACTERIA CULTURE (07/13/2025 7:54 AM CDT) SPEC DESCRIPTION URINE CLEAN CATCH 07/13/2025 11:40 AM CDT [facility] SPECIAL REQUESTS NO SPECIAL REQUEST 07/13/2025 11:40 AM CDT [facility] CULTURE RESULT >100,000 COL/ML ESCHERICHIA COLI (A) 07/15/2025 8:21 AM CDT [facility] URINE SPECIMEN OBTAINED BY CLEAN CATCH [...] MICROBIOLOGY - GENERAL ORDERABLE S Final Result Performing Organization Address City/State/[facility] Co de Phone Number [facility] [address] [place] [address], [place] [phone] [facility] [address] [place] [address], [place] [phone] * (ABNORMAL) URINALYSIS AUTO DIP (07/13/2025) COLOR (U) LIZA(A) YELLOW [facility] ([address]), [facility] TRANSPARENCY CLOUDY(A) CLEAR [facility] ([address]), [place] GLUCOSE (U) NEGATIVE NEGATIVE MG/DL [facility] ([address]), [facility] BILIRUBIN (U) NEGATIVE NEGATIVE [facility] [place] ([address]), [place] KETONES MG/DL (U) NEGATIVE NEGATIVE MG/DL [facility] ([address]), [place] SPECIFIC GRAVITY (U) 1.020 1.001 - 1.035 [facility] ([address]), [facility] BLOOD (U) LARGE (3+ Hemolyzed, About 250 rbc/uL)(A) NEGATIVE [facility] ([address]), [place] U PH 5.5 5.0 - 9.0 [facility] ([address]), [facility] PROTEIN (U) 2+ (100)(A) NEGATIVE mg/dL [facility] ([address]), [facility] UROBILINOGEN 0.2 0.2 - 1.0 EU/dL = mg/dL [facility] ([address]), [facility] NITRITES POSITIVE(A) NEGATIVE MG/DL [facility] ([address]), [facility] LEUKOCYTES (U) 3+ (LARGE)(A) NEGATIVE [facility] ([address]), [facility] URINE SPECIMEN OBTAINED BY CLEAN CATCH PROCEDURE / Unknown 07/13/2025 us Stefania Campbell NP URINE ORDERABLES Final Result [facility] ([address]), [place] [address] [place] [address], * MAMMOGRAM GENERIC (12/30/2021) Anatomical Region Laterality Modality Other 12/30/2021 Narrative 12/30/2021 Ordered by an unspecified provider. us Documents Scanned SCANNING Final Result * COLONOSCOPY (03/27/2019) us Documents Scanned SCANNING Final Result [facility] OGLESBY [address] [address] from Last 3 Months or Most Recently Relevant to Health Maintenance Insurance [facility] [employer] Advance Directives * Full Code (Latest Code Status on File) Date Activated Date Inactivated Comments 04/11/2025 5:37 PM 04/12/2025 1:03 PM Care Teams Jacket Preparer Relationship Specialty Start Date End Date Lyndon Reza MD PCP - General FAMILY PRACTICE 01/30/19
--- OUTSIDE RECORDS SUMMARY | 2025-10-07 10:39 | XMS_ITS | Clinical Summary ---
Author Organization [facility] Address [address] [place] [address] Care Team Providers Care Elevator Service Mechanic Name Role Phone Unavailable Primary Care Provider Unavailabl e Source Comments [facility],non-owned Affiliates and Associated Physician Practices is amultiple site organization consisting of ambulatory clinics and hospital sitesin [place], [place], [place] and [place]. This disclosure is being madepursuant to the Care Everywhere program and may not contain all information available regarding this patient. Last updated 18.[facility] Social History Tobacco Use Types Packs/Day Years Used Date Smoking Tobacco: Never Assessed Comments Unknown Sex and Gender Information Value Date Recorded Sex Assigned at Not on file Legal Sex Female 5:50 PM MACHINE TAILER Gender Identity Not on file Sexual Orientation [...] DEPRESSION SCREENING 10/22/2024 COVID-19 VACCINE (1 - 2024-2 6 season) 2025 INFLUENZA VACCINE (#1) 2025 Respiratory [...]
--- OUTSIDE RECORDS SUMMARY | 2025-10-07 10:39 | XMS_ITS | Encounter Summary ---
Author Organization [facility] Address [address] [place] [address] Care Team Providers Care Cardiac Cath Lab Technologist Name Role Phone Lyndon Reza MD Primary Care Provider [phone] Encounter Details Date Type Department Care Team (Late st Contact Info) Description 03/28/2019 BLADE GRADER OPERATOR ONLY [facility] Medical Group Priority Care - [address] [place] [address] Scanned, Documents Social History Tobacco [...] 1:30 PM CDT ENEDELIA DON MD: Acct: [id number] Admit/Service Date: 03/28/19 Discharge Date: 03/28/19 : 1960 Pt Type: DEP SDC Sex: F Ord Site: [facility] OPERATIVE RECORD Date of Operation: 03/28/2019 Surgeon: [...] not optimal at 9 on a total [place] score. Small residual flecks of stool were [...] RS:maxine P P cc: Brad Lang M.D. [id number] documented in this encounter Plan of Treatment Not on file documented as of this encounter Visit Diagnoses Not on filedocumented in this encounter Additional Health Concerns Infection Onset Date Last Indicated Resolved Time COVID-19 Rule Out 01/16/2024 01/16/2024 01/16/2024 11:45 AM CDT COVID-19 Rule Out 07/18/2024 07/18/2024 07/21/2024 11:43 AM CDT documented as of this encounter Care Teams Cardiac Cath Lab Technologist Relationship Specialty Start Date End Date Lyndon Reza MD PCP - General FAMILY PRACTICE 01/30/19 documented as of this encounter
== END 2025-10-07 09:27 | disposition home or self-care (01) ==
LOC: ANHFOHIMG 09:26
PROVIDERS: PCP Family Medicine; Visit Provider Obstetrics & Gynecology
DX: Z78.0 Asymptomatic menopausal state (principal); M85.88 Other specified disorders of bone density and structure, other site; M81.0 Age-related osteoporosis without current pathological fracture; M85.852 Other specified disorders of bone density and structure, left thigh; M85.851 Other specified disorders of bone density and structure, right thigh
CPT/HCPCS: 77080